=== PATIENT | male | born 1980 | race Caucasian/White ===

== ENCOUNTER 2023-04-29 15:36 | Outpatient (CLI) | payer OTHER, SELFPAY | END 2023-04-29 15:37 | disposition home or self-care (01) | PROVIDERS: PCP Family Medicine; Visit Provider Physician Assistant | DX: R22.0 Localized swelling, mass and lump, head (principal); L03.90 Cellulitis, unspecified; J06.9 Acute upper respiratory infection, unspecified | CPT/HCPCS: 86735 ==